=== PATIENT | female | born 1965 | race Caucasian/White ===

== ENCOUNTER 2018-04-03 07:36 | Day surgery (SDC) | payer MEDICAID ==
[2018-04-03] MEDS ORDERED: FENTAnyl 50 MCG/ML VIAL (09:51)
[2018-04-03] MEDS ORDERED: MIDAZOLAM 1 MG/ML 2 ML INJ ×2 (09:51→09:52)
== END 2018-04-03 14:58 | disposition home or self-care (01) ==
LOC: GIL 07:36
DX: Z12.11 Encounter for screening for malignant neoplasm of colon (principal); K64.8 Other hemorrhoids
CPT/HCPCS: 45378